=== PATIENT | female | born 1950 | race Caucasian/White ===

== ENCOUNTER 2016-04-22 16:00 | Observation (INO) | payer MEDICARE, BC ==
[~2016-04-22] VITALS: Ht 167.6 cm; Wt 58.8 kg
--- NOTE | ~2016-04-22 | CON ---
PATIENT'S NAME: KASI BANEGAS [facility] AGE: 66 Y [address] ROOM: [place] [id number] LOCATION: GPCU ADMIT DATE: 04/22/2016 Consultation DISCHARGE DATE: 04/23/2016 FAMILY PHYSICIAN: Chari Vee APRN ATTENDING PHYSICIAN: Hakan Weaver DATE OF CONSULTATION: 04/23/2016 REFERRING PHYSICIAN: Ifeanyi Shafer MD REFERRING PHYSICIAN: Hakan Weaver MD. HISTORY OF PRESENT ILLNESS: This is a very pleasant 66-year-old female, who was out shopping and experienced a sudden onset of chest tightness with chest pounding. She felt very lightheaded and this lasted for a while, so she went to the clinic. By the time she had gotten to the clinic, her symptoms had lessened. She states she has had these episodes of lightheadedness and chest pounding off and on, but thought it was more related to what she called a "panic attack." She denies any exertional chest pain. There is no report of shortness of breath, orthopnea, PND, or peripheral edema. She denies syncope. PAST MEDICAL HISTORY: 1. Hypothyroidism. 2. Gastroesophageal reflux disease. 3. History of a goiter many years ago. PAST SURGICAL HISTORY: 1. She has had T and A. 2. D and C. 3. Colonoscopy. ALLERGIES: DAIRY, EGGS, NUTS, FISH CONTAINING PRODUCTS, AND GLUTEN. HOME MEDICATIONS: 1. Levothyroxine 88 mcg daily. 2. Multivitamin every day. 3. Omeprazole 20 mg p.o. every day. FAMILY HISTORY: Her mother had valvular heart disease and pacemaker, and she is . Father lived to be . He was a smoker and had prostate cancer. She has a sister and a brother who are alive and well. PATIENT'S NAME: KASI BANEGAS [facility] AGE: 66 Y [address] ROOM: [place] [address] LOCATION: GPCU ADMIT DATE: 04/22/2016 Consultation DISCHARGE DATE: 04/23/2016 FAMILY PHYSICIAN: Chari Vee APRN ATTENDING PHYSICIAN: Hakan Weaver SOCIAL HISTORY: She is . She has 3 sons who are alive and well. She has never used tobacco. Rarely uses alcohol. REVIEW OF SYSTEMS: HEAD: No history of headache. EYES: No blurred vision or double vision. EARS: No problems with hearing. NOSE: No epistaxis or rhinorrhea. MOUTH: No gingival bleeding. THROAT: Denies sore throat, hoarseness, or difficulty swallowing. PULMONARY: Denies cough or hemoptysis. GASTROINTESTINAL: She has problems with gastroesophageal reflux disease. : No problems with urinary tract infections or dysuria. No problems with urgency. MUSCULOSKELETAL: She does have generalized arthritis, especially in the hands and the hip. NEUROLOGIC: She denies TIA or CVA symptomatology. ENDOCRINE: She has a history of hypothyroidism and is on replacement therapy with a history of goiter. No history of polyuria or polydipsia. PHYSICAL EXAMINATION: VITAL SIGNS: Blood pressure is 96/51 to 110/60, heart rate 65, respirations are 18, and temperature is 97.5. Her height is 5 feet and 6 inches. She weighs 58 kg or 129 pounds. GENERAL: She is alert and oriented. Answers questions appropriately. SKIN: Warm, dry, and pink. HEENT: Pupils equal, round, and react briskly to light. EOMs are intact. NECK: Soft and supple. No lymphadenopathy or thyromegaly. JVD is flat. LUNGS: Lung sounds are clear without evidence of wheezes, rales, or rhonchi. CV: Regular with a normal S1 and S2. There is no murmur, rub, or click. ABDOMEN: Soft. Bowel sounds are present. EXTREMITIES: No peripheral edema. No clubbing. Distal pulses are 2+/4. LABORATORY DATA: BUN is 12, creatinine 0.9, sodium 135, and potassium 3.2. Cholesterol 168, triglycerides 117, HDL 49, and LDL was 96. UA was normal. ASSESSMENT: 1. Atypical chest pain. Her cardiac enzymes are negative x2. We will plan a treadmill Cardiolite stress test in the morning to rule out cardiac ischemia. 2. Palpitations. We did replace potassium today. We will check a TSH. She may need monitor as an outpatient. Further recommendations will be forthcoming to give the results of the stress test. PATIENT'S NAME: KASI BANEGAS [facility] AGE: 66 Y [address] ROOM: [address] [address] [facility] ADMIT DATE: 04/22/2016 Consultation DISCHARGE DATE: 04/23/2016 FAMILY PHYSICIAN: Chari Vee APRN ATTENDING PHYSICIAN: Hakan Weaver The assessment and plan, history of present illness, and physical exam are per Dr. Luz Shafer. We would like to thank Dr. Melchor Weaver for allowing us participate in the patient's care. JAVIER AWAD APRN FOR MD OLU ALTMAN/treyl /[id number] d: 04/23/160 t: 05/04/16 1312, CONSULTATION REPORT
--- NOTE | ~2016-04-22 | ESTC ---
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 Risk Factors The patient risk factors include:family history of premature CAD. Conclusions Summary Cardiolite SPECT images demonstrates increased tracer uptake in the gut on the rest images without corresponding inferior wall defect. There is no evidence of inducible reversible defect and no evidence of underlying fixed defect. Normal TID ratio Gated images demonstrate normal left ventricular function without wall motion abnormalities. LVEF is 84% Stress Protocols Resting ECG RSR with T wave changes Resting HR:78 bpm Resting BP:107/57 mmHg Pre-stress physical exam: Alert. Had complained of palpitations with chest pain. Stress Protocol:Exercise Peak HR:123 bpm HR response: Appropriate Peak BP:144/70 mmHg BP response: Appropriate Predicted HR: 152 bpm HR/BP product:34476 % of predicted HR: 81 Test duration:07:13 min Reason for termination:Fatigue Exercise effort:Good Perceived exertion:19 ECG Findings RSR Arrhythmias None Symptoms Became light headed with exercise. States I haven't eaten. Stress Interpretation Appropriate hemodynamic response to exercise. No significant ST-T wave changes with exercise. EKG portion is negative for ischemia by diagnostic criteria. The Bailey Treadmill score was +7 .This corresponds to a low risk stress test. Stress supervision and interpretation provided by Leydi Lunsford APRN . Imaging Results Summed scores - Summed stress score: 0 - Summed rest score: 0 - Summed difference score: 0 Stress ejection Ejection fraction:83 % EDV :47 ml ESV :8 ml Stroke volume :39 ml LV mass :90 gr Imaging Protocols Rest Stress Isotope:Tc99m Sestamibi IV Isotope: Tc99m Sestamibi IV Isotope dose:10.5 mCi Isotope dose:30.2 mCi Date:04/23/2016 07:27 Date:04/23/2016 09:15 Technique: SPECT Technique: Gated Supine SPECT Supine IV remains in place after procedure. Scan Time:30 minutes post injection Scan Time:45-60 minutes post injection Medical History Admission Data Admission date: 04/22/2016 Admission Time: 16:16 Hospital Status: Inpatient. Signatures dtt: Ifeanyi Shafer (cardio) dtd: 04/23/16 0900 Physician Self Edit
--- NOTE | 2016-04-22 17:15 | NUR ---
Pt is 66 y/o female admit for chest pain for DR.Chadd Weaver. Pt has numerous food allergies and is allergic to PCN. Hx anxiety,gerd,chest pressure, heartburn. Pt states she was in town grocery shopping and all of a sudden got chest pain and short of breath. She went to an urgent care and was sent to hospital to be admitted. Pt alert and oriented x3. very anxious about being in the hospital and having an IV. Resides at home with her .
[2016-04-22] MEDS ORDERED: LEVOTHROID (SY88 MCG PO (17:41)
[2016-04-22] MEDS ORDERED: PRILOSEC20 MG PO (17:42)
[2016-04-22] MEDS ORDERED: THERAGRAN-M1 TAB PO (17:42)
--- NOTE | 2016-04-22 19:00 | NUR ---
D:Patient arrived per wheelchair from Admissions. Is pleasant, upset about being admitted because now she is feeling much better. Encouraged that it is still a good idea to get it all checked out. Resting in bed. No c/o pain. No anxiety at this time. P:Monitor for further chest pain, consult Dr. Shafer
[2016-04-22 19:14] LABS: BILIRUBIN URINE NEGATIVE (NEGATIVE); BLOOD URINE NEGATIVE /UL (NEGATIVE); GLUCOSE URINE NEGATIVE (NEGATIVE); KETONE URINE 5 mg/dL (NEGATIVE); LEUKOCYTES URINE 500 /UL (NEGATIVE); NITRITE URINE NEGATIVE (NEGATIVE); PROTEIN URINE NEGATIVE (NEGATIVE); SPEC GRAVITY URINE 1.015 (1.003-1.035); UROBILINOGEN URINE NORMAL (NORMAL)
[2016-04-22 19:24] LABS: COLOR URINE YELLOW (YELLOW); TURBIDITY URINE CLEAR (CLEAR)
[2016-04-22 19:25] LABS: RBC URINE NEGATIVE #/HPF (NEGATIVE)
[2016-04-22 19:28] LABS: BACTERIA URINE NEGATIVE (NEGATIVE); MUCUS URINE 1+ (NEGATIVE)
[2016-04-22 19:29] LABS: CRYSTALS URINE CALCIUM OXALATE (NEGATIVE)
[2016-04-22 20:30] LABS: PROTIME 10.8 SECONDS (9.6-11.1)
[2016-04-22 20:37] LABS: CPK 52 IU/L (21-215)
[2016-04-22 20:45] LABS: ALBUMIN 3.3 gm/dL (3.5-5.0); ALK PHOS 104 IU/L (33-138); ALT 21 IU/L (12-78); ANION GAP 12.2 (10.0-19.0); AST 13 IU/L (10-40); BLOOD UREA NITROGEN 12 mg/dL (6-24); CALCIUM 8.4 mg/dL (8.5-10.5); CHLORIDE 100 mMol/L (96-110); CO2 26 mMol/L (22-32); CREATININE 0.9 mg/dL (0.5-1.1); ESTIMATED GFR (MDRD EQUATION) > 60; MAGNESIUM 2.1 mg/dL (1.3-2.6); POTASSIUM 3.2 mMol/L (3.7-5.1); SODIUM 135 mMol/L (135-145); TOTAL BILIRUBIN 0.4 mg/dL (0.0-1.5); TOTAL PROTEIN 6.6 g/dL (6.0-8.4)
[2016-04-23 03:09] LABS: CPK 54 IU/L (21-215)
--- NOTE | 2016-04-23 04:54 | NUR ---
Significant Event: A/O, SBP 90-130s, HR 60-80s, RA, afebrile, patient had one episode of chest pressure 02/26, gave xanax and has had no further discomfort, patient remains anxious about being in hospital, NPO since ms for cardiology to see this am, NS running at 50/hr, cardiac enzymes negative Follow up: continue to monitor
--- NOTE | 2016-04-23 11:40 | NUR ---
Introduced self and role of care management to patient. She lives in [facility] with her . She states that she is able to do all her own ADL's. 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 She states that her will be avaialble to assist as needed. She plans on returning home on discharge. She denies any needs at this time. Will continue to follow.
[2016-04-23 11:42] LABS: CPK 69 IU/L (21-215)
--- NOTE | 2016-04-23 13:52 | NUR ---
DISCHARGE: A/O X3. UP AD YASMIN. VSS. STRESS TEST NEGATIVE. DENIES PAIN. PIV DC'D, NO COMPLICATIONS. NO MED CHANGES ON DC. WALKED TO MAIN ENTRANCE TO HER CAR. ESCORTED BY PIOTR. DISMISSED @ [id number].
== END 2016-04-23 13:00 | disposition disaster alternative care site (69) ==
LOC: GPCU 16:16
PROVIDERS: ADMIT Family Medicine
DX: R07.89 Other chest pain (principal); R00.2 Palpitations; E03.9 Hypothyroidism, unspecified; K21.9 Gastro-esophageal reflux disease without esophagitis; M19.042 Primary osteoarthritis, left hand; M19.041 Primary osteoarthritis, right hand; M16.10 Unilateral primary osteoarthritis, unspecified hip; Z79.899 Other long term (current) drug therapy
CPT/HCPCS: A9500; G0378; G0379; J7030